=== PATIENT | female | born 1930 | race Caucasian/White ===

== ENCOUNTER → 2016-06-19 | Outpatient (CLI) | payer MEDICARE, BC ==
[~2016-06-19] MED LIST: ATIVAN-DPS0.5 MG PO; ATIVAN-DPS0.5 MG SL; COLACE-DPS100 MG PO; DESYREL DPS100 MG PO; DULCOLAX-DPS10 MG PR; HALOPERIDOL PO; KLONOPIN DPS0.5 MG PO; MICRO-K DPS10 MEQ PO; MIRALAX PACKET17 GM PO; NOVOLOG100 UNIT/2 SQ; PAXIL DPS20 MG PO; ROXANOL 20MG20 MG/ML PO; SEROQUEL25 MG PO; TYLENOL DP650 MG/20. PO; [UNRECOGNIZED DRUG - OTHER] PO
== END | disposition home or self-care (01) ==
LOC: RAD.S 10:17
DX: F03.91 Unspecified dementia, unspecified severity, with behavioral disturbance (principal); R45.1 Restlessness and agitation; G31.9 Degenerative disease of nervous system, unspecified; E11.9 Type 2 diabetes mellitus without complications; E78.5 Hyperlipidemia, unspecified

== ENCOUNTER 2016-07-10 14:54 | Inpatient (IN) | payer MEDICARE, BC ==
[~2016-07-10] VITALS: Ht 154.9 cm; Wt 51.9 kg
--- NOTE | 2016-07-17 14:40 | CO ---
ADMIT: 07/12/2016 RM/LOC: 410 [facility] MR#: [id number] [address] [address] [place] [address] Consultation SEX: F AGE: 86 : 1930 DATE OF CONSULTATION: 07/17/2016 ATTENDING PHYSICIAN: Rufino Hall CONSULTING PHYSICIAN: Laquita Singh APRN TIME IN: 0900 hours. TIME OUT: 0940 hours. REASON FOR CONSULTATION: Supportive care consultation was requested by Dr. Hall for discussion of goals for care. HISTORY OF PRESENT ILLNESS: Aliza is an 86-year-old female with a history of dementia as well as diabetes mellitus type 2. She had been residing at [facility] care unit. She was admitted on 07/12 with mental status changes, elevated glucose, and decreased oral intake in the time leading up to her hospital stay. She is found to have pneumonia and this is being treated. Speech therapy did evaluate her due to risk for aspiration and recommended n.p.o. status due to her lethargy and fatigue. Additionally, she has had issues with urinary retention and bowel impaction. She is delirious and was complaining of abdominal pain, therefore a CT of the abdomen and pelvis was done yesterday that showed an enlarged gallbladder without definite stones or ductal dilation, nonobstructing calculus in the left kidney, bilateral pleural effusions and a small pericardial effusion. Ultrasound was done of the abdomen and pelvis and she had a small amount of gallbladder sludge without evidence of acute cholecystitis. Due to her complexities, supportive care consultation was requested to discuss goals for care. In terms of advanced directives, this patient is a do not resuscitate/do not intubate status. The patient's medical decision maker is her nephew, Brigido Washington, whose phone# [phone]. Symptomatically, the patient does appear uncomfortable. She acts like her abdomen is hurting and she is delirious. She is overall weak and debilitated. PAST MEDICAL HISTORY: 1. Diabetes. 2. Anxiety. 3. Elevated cholesterol. 4. Dementia. ALLERGIES: THE PATIENT HAS NO KNOWN MEDICATION ALLERGIES. CURRENT MEDICATIONS: Please see the patient's MAR for specific routes and dosages. Her current medications are as follows. 1. Half normal saline. 2. Seroquel. 3. Levaquin. ADMIT: 07/12/2016 RM/LOC: 410 [facility] MR#: [id number] [address] [address] [place] [address] Consultation SEX: F AGE: 86 : 1930 4. Klonopin. 5. NovoLog. 6. MiraLax. 7. Dulcolax. 8. Levemir. 9. Zestril. 10.Paxil. 11.Exelon patch. 12.Glucophage. 13.Potassium chloride. 14.Haldol. 15.Ativan. 16.Calmoseptine. 17.Tylenol. 18.Maalox. 19.Glutose. 20.Glucagon. 21.D5 normal saline. 22.D50. 23.Lovenox. SOCIAL HISTORY: The patient [facility] in a [facility]. She does not use alcohol or tobacco. She is retired. Her nephew is her next of kin medical decision maker. FAMILY HISTORY: Reviewed and noncontributory. FUNCTIONAL REVIEW: Prior to her hospital stay, the patient's nephew states that she could ambulate and even dress herself at her dementia unit. It sounds like her palliative performance scale prior to admission was around 60%. Currently, she is in bed. She is total care. She is demented and delirious. She is taking in minimal intake. Her current palliative performance scale is a 20%. REVIEW OF SYSTEMS: A 10-point review of systems was attempted. However, due to the patient's mentation, this was unable to be obtained. PHYSICAL EXAMINATION: GENERAL: The patient is examined in the bed. She seems to be in mild distress and appears uncomfortable. VITAL SIGNS: Temperature 98.7, pulse 75, respirations 16, blood pressure 113/84, oxygen 92% on room air. HEENT. Head is normocephalic. Pupils are 3 mm and brisk. Oral mucosa pink and moist with fair dentition. NECK: Supple. RESPIRATORY: Respirations are equal and nonlabored at rest. LUNGS: Diminished in the bases bilaterally. CARDIOVASCULAR: Rate and rhythm regular without murmurs, rubs, or gallops. GASTROINTESTINAL: Soft. Bowel sounds are positive. ADMIT: 07/12/2016 RM/LOC: 410 [facility] MR#: [id number] [address] [place], [place] [id number] [place] [address] Consultation SEX: F AGE: 86 : 1930 GENITOURINARY: The patient has been having issues with urinary retention, and most recent bladder scan this morning reveals over 300 mL of urine in the bladder. INTEGUMENTARY: Skin turgor is fair. No rashes or wounds noted. NEUROLOGIC: Disoriented. She will not follow commands. PSYCHIATRIC: Delirious and demented. DIAGNOSTIC DATA: Sodium 146, potassium 3.7, BUN 39, creatinine 1.2, total protein 6.4, albumin 2.5. WBCs 40.3, hemoglobin 16.5, hematocrit 51.3, platelets are 471. IMPRESSION: 1. Physical debility. 2. Dementia. 3. Fatigue. 4. Malaise. 5. Moderate protein-calorie malnutrition. 6. Abdominal pain. 7. Urinary retention. 8. Pneumonia. 9. Delirium. 10.Left ovarian cyst/mass on imaging. 11.Palliative care. 12.The patient is a DNR/DNI. PLAN: 1. Obviously, the patient is unable to participate in medical decision making due to her cognitive status. I did call the patient's nephew, Brigido Washington via telephone and we reviewed the patient's overall status and goals for the time ahead. I did update him on the outcome of the patient's CT scan and ultrasound that was done yesterday. He is aware that the gallbladder has sludge, but that there is no obvious acute cholecystitis. I did tell him that the next step would be a HIDA scan to further evaluate this, although if there is abnormality, she may have a difficult time tolerating gallbladder surgery. He states that the patient has been declining and he feels that she will continue to decline in the time ahead. He states that the preference is to focus on comfort at this time. We did review the hospice philosophy and benefit in detail. I answered any questions that the patient's nephew had. He directs to transition the patient back to [facility] if possible with hospice care. We did discuss at length the patient's aspiration risk and n.p.o. status. After discussion, he directs that the patient have a pleasure diet with a known risk for aspiration which could lead to pneumonia and eventual . 2. I will add Roxanol for pain control as she does appear to be uncomfortable. 3. I do agree with the Seroquel for the delirium. In the time ahead if her swallowing becomes further impaired, she may need to transition to oral ADMIT: 07/12/2016 RM/LOC: 410 [facility] MR#: [id number] [address] [place] [id number] [place] [address] Consultation SEX: F AGE: 86 : 1930 concentrate Haldol for control of her delirium symptoms. Hospice can assist with this in the time ahead. 4. In discussion with Dr. Hall, she will likely need a long-term Perez with her ongoing urinary retention. He did start Flomax for the patient to hopefully assist with emptying her bladder. 5. We will continue to follow along in the care of this patient and assist with goals as needed. We would like to thank Dr. Hall for the invitation to participate in this patient's care. Total consultation time was 40 minutes from 0900 hours to 0940 hours with 25 minutes from 0900 hours to 0925 hours spent [id number] with the patient or on the phone with her nephew discussing goals for care and providing counseling and support. The plan of care was discussed with Dr. Hall who recommends [facility], an update along with Dr. Hall's preference was shared with social work who will work with family on discharge plans. Laquita Singh APRN/ edgar JOB #: [id number] CC: Rufino Hall, Attending Physician Rufino Hall, Family Physician
[2016-07-19] MEDS ORDERED: ROXANOL 20MG20 MG/ML PO (20:01)
[2016-07-19] MEDS ORDERED: DESYREL DPS100 MG PO (20:02)
[2016-07-19] MEDS ORDERED: ATIVAN-DPS0.5 MG SL (20:02)
[2016-07-19] MEDS ORDERED: PAXIL DPS20 MG PO (20:03)
[2016-07-19] MEDS ORDERED: MICRO-K DPS10 MEQ PO (20:03)
[2016-07-19] MEDS ORDERED: SEROQUEL25 MG PO (20:03)
[2016-07-19] MEDS ORDERED: KLONOPIN DPS0.5 MG PO (20:03)
[2016-07-19] MEDS ORDERED: MIRALAX PACKET17 GM PO (20:03)
[2016-07-19] MEDS ORDERED: NOVOLOG100 UNIT/2 SQ (20:04)
[2016-07-19] MEDS ORDERED: ATIVAN-DPS0.5 MG PO (20:04)
[2016-07-19] MEDS ORDERED: HALOPERIDOL PO (20:05)
[2016-07-19] MEDS ORDERED: TYLENOL DP650 MG/20. PO (20:05)
[2016-07-19] MEDS ORDERED: COLACE-DPS100 MG PO (20:05)
[2016-07-19] MEDS ORDERED: [UNRECOGNIZED DRUG - OTHER] PO (20:05)
[2016-07-19] MEDS ORDERED: DULCOLAX-DPS10 MG PR (20:06)
--- NOTE | 2016-07-20 01:14 | ER ---
ADMIT: 07/10/2016 RM/LOC: 410 [facility] MR#: [id number] [address] [place], [place] [id number] [place] [address] Emergency Room Report SEX: F AGE: 86 : 1930 DATE: 07/10/2016 HISTORY OF PRESENT ILLNESS: The patient is an 86-year-old female, presents to the emergency room from [facility] because of increased blood sugar, increased lethargy, and decreased urine, not eating or drinking. She has history of dementia; hyperlipidemia; diabetes insulin type 2. The fpc says that she has been more lethargic and increasingly agitated. Blood sugar started going up on Thursday. MEDICATIONS: Were also adjusted a bit. She is on: 1. Trazodone. 2. Lorazepam. 3. Lantus. 4. Quetiapine. 5. Metformin. 6. Exelon. 7. Haloperidol. ALLERGIES: SHE HAS NO ALLERGIES TO MEDICATION. PHYSICAL EXAMINATION: GENERAL: I was unable to get much information from her as she is demented, unable to talk much. VITAL SIGNS: Blood pressure 135/61, with a heart rate of 85, respirations 18, temperature is 98.9, and O2 saturations 92%. SKIN: Good color and turgor. EXTREMITIES: Nontender. ABDOMEN: She grimaced when I touched lower abdomen. CV: Regular in rate and rhythm. RESPIRATIONS: No distress. ADMIT: 07/10/2016 RM/LOC: 410 [facility] MR#: [id number] [address] [address] [place] [address] Emergency Room Report SEX: F AGE: 86 : 1930 LABORATORY DATA: CBC within normal limits. Chemistry normal as well with osmolality of 319, glucose of 1000, ketones 1+, RBCs 3. Left lung has opacity in her lower base. Dr. Sam was contacted at the fpc, did not want to take the patient back. CLINICAL IMPRESSION: 1. Left lower lobe opacification, rule out pneumonia. 2. Hyperglycemia. 3. Dementia. Dr. Sam contacted Dr. Praveena Agarwal, came in to admit the patient and give orders. JOEL Wynn / Steven Sosa MD / edgar JOB #: [id number] CC: Rufino Hall MD, Attending Physician Rufino Hall MD, Family Physician
--- NOTE | 2016-07-21 19:48 | HP ---
ADMIT: 07/10/2016 RM/LOC: 410 [facility] MR#: [id number] [address] [address] [place], [place] [address] History and Physical SEX: F AGE: 86 : 1930 DATE OF SERVICE: CHIEF COMPLAINT: Increased altered mental status, elevated glucose, decreased appetite at skilled nursing. HISTORY OF PRESENT ILLNESS: The patient was sent to the ER. She was found to be more confused and had an elevated blood glucose. The patient was severely demented and was not able to really tell the people at the skilled nursing what was really going on. When I spoke with her this evening, the patient is only alert to person, could not really contribute to any of her past medical history or her HPI. The patient's vital signs were stable when she got to the ER with a blood pressure of 119/53, pulse is 70, 19 respiratory rate, and 98% SpO2 on room air. PAST MEDICAL HISTORY: Includes diabetes, anxiety, elevated cholesterol, dementia. SOCIAL HISTORY: Social history that I am aware of is she lives in a skilled nursing. PAST SURGICAL HISTORY: I am not able to obtain any surgical history. ALLERGIES: THERE ARE NO ALLERGIES LISTED ON THE PATIENT'S CHART. EMERGENCY DEPARTMENT COURSE: Workup in the ER was fairly benign, although a chest x-ray showed maybe a possible left lower lobe developing pneumonia, also could be possible atelectasis. CT was done to further investigate this, shows again possible start of a pneumonia. LABORATORY DATA: CBC was normal. She does have elevated glucose of 379 and a serum osmolality of 319, which is elevated. Otherwise, electrolytes and creatinine were normal. AST and ALT were normal. No anion gap. UA was positive for greater than 1000 glucose, positive for 1+ ketones, but negative LE and negative nitrites. REVIEW OF SYSTEMS: Found to be clean with her. She denies any real complaints at this time. Denies any pain, any shortness of breath or cough, denies headache, denies stomach problems, diarrhea, constipation. She says she feels well, overall no concerns, but again she is very demented, unable to determine what her real possible problem if any. PHYSICAL EXAMINATION: GENERAL: Alert to person only. No acute distress. She is demented. HEART: Regular rate and rhythm. No murmur. LUNGS: Clear to auscultation bilaterally. Normal effort. ABDOMEN: Soft, nontender. Positive bowel sounds. EXTREMITIES: No edema. She had normal range of motion. 2+ pulses bilaterally. NEURO: Cranial nerves II through XII are grossly intact. ADMIT: 07/10/2016 RM/LOC: 410 [facility] MR#: [id number] [address] [place], [place] [id number] [place] [address] History and Physical SEX: F AGE: 86 : 1930 IMAGING DATA: Imaging in the ER was fairly benign except for this possible left lower lobe pneumonia. ASSESSMENT AND PLAN: This is an 86-year-old demented female who presented to the ER for increased altered mental status as well as elevated glucose. We will admit the patient for further management for possible pneumonia. We will go ahead and start treatment on that and we will also correct her glucose. We will repeat lab work and chest x-ray in the morning. We will also get a lactic acid and procalcitonin now to assess for any further infection risk at this time. Goal of O2 saturation of 90%. We will keep the patient on normal saline for IV fluids. Praveena Agarwal MD Resident / Nestor Sam MD / modl JOB #: [id number] CC: Rufino Hall, Attending Physician Rufino Hall, Family Physician
--- NOTE | 2016-08-04 08:10 | DS ---
ADMIT: 07/12/2016 RM/LOC: 410 [facility] MR#: [id number] [address] [address] [place] [address] General Discharge Summary SEX: F AGE: 86 : 1930 ADMISSION DATE: 07/12/2016 DISCHARGE DATE: 07/17/2016 CONSULT: Supportive Care. PROCEDURES: None. FINAL DIAGNOSES: 1. Acute mental status likely secondary to pneumonia. 2. Dementia. 3. Urinary retention. 4. Diabetes mellitus, type 2 with hyperglycemia. 5. Anxiety. 6. Elevated cholesterol. 7. Abdominal pain, possibly due to urinary retention or gallbladder sludge, but no acute cholecystitis or pancreatitis or obstruction. HISTORY OF PRESENT ILLNESS: The patient is a pleasant 86-year-old female with severe dementia, who resides in the [facility], who presented to the ER after having worsening altered mental status and decreased p.o. intake over the last few days. The patient was found to have a developing pneumonia and was admitted and started on IV antibiotics. She also had an elevated glucose as well as agitation. The patient was straight catheterized and was found to be having urinary retention. HOSPITAL COURSE: Pneumonia: The patient was treated with IV antibiotics and had improvement. Urinary retention. Again, the patient was agitated, was straight catheterized and found to have urinary retention. She continued to have some decreased urinary output even with some of the straight catheterized and postvoid bladder scans were continued. The patient had a kidney ultrasound that did not show any abnormalities. A Perez catheter was placed. The patient stayed on Flomax. Abdominal pain: CT was performed, showed some inflammation of the gallbladder, but no acute stones. Pancreatitis: Everything else looked normal. Ultrasound was done. It showed gallbladder sludge, but did not show any signs of stones or blockage. We have discussed possibly doing HIDA scan for further diagnosis; however, upon talking with the patient's POA, her nephew, it was decided that the patient had been declining over the last few months and the decision was made to continue with hospice care at the [facility]. Supportive Care helped finalize these goals and coordinate the patient's care. DISCHARGE MEDICATIONS: Included: 1. Desyrel 100 mg p.o. daily. 2. Klonopin 0.25 mg p.o. at bedtime. ADMIT: 07/12/2016 RM/LOC: 410 [facility] MR#: [id number] [address] [address] [place] [address] General Discharge Summary SEX: F AGE: 86 : 1930 3. Micro potassium 10 mEq daily. 4. MiraLAX packet daily. 5. Paxil 20 mg daily. 6. Seroquel 75 mg at bedtime. The patient was sent out on: 1. NovoLog sliding scale. 2. Ativan 0.5 q.6 hours p.r.n. 3. Colace p.r.n. 4. Haldol 0.5 mg tab q.6 p.r.n. 5. Roxanol 2.5 to 5 mg q.1 hour p.r.n. pain, dyspnea. 6. Dulcolax. 7. Tylenol p.r.n. The patient had Speech Therapy seen, and it was determined that the patient would have some difficulty with swallowing and aspiration due to altered mental status. Testing was not able to be done, but it was discussed with the nephew that letting the patient eat for pleasure versus not letting her eat due for aspiration risk, and it was determined that she could eat for pleasure. DISPOSITION: Hospice care at her dementia unit. CODE STATUS: DNR/DNI. Praveena Agarwal MD Resident / Nestor Sam MD / modl JOB #: [id number] CC: Rufino Hall MD, Attending Physician Rufino Hall MD, Family Physician
== END 2016-07-17 15:08 | disposition home or self-care (01) | DRG 193 ==
LOC: ER 14:54 → 4PCU 18:50
PROVIDERS: ADMIT Family Medicine
DX: J18.9 Pneumonia, unspecified organism (principal); G93.40 Encephalopathy, unspecified; E44.0 Moderate protein-calorie malnutrition; F03.90 Unspecified dementia, unspecified severity, without behavioral disturbance, psychotic disturbance, mood disturbance, and anxiety; E11.65 Type 2 diabetes mellitus with hyperglycemia; N83.202 Unspecified ovarian cyst, left side; N20.0 Calculus of kidney; F41.9 Anxiety disorder, unspecified; R33.9 Retention of urine, unspecified; E78.5 Hyperlipidemia, unspecified; Z79.4 Long term (current) use of insulin; Z66 Do not resuscitate